=== PATIENT | female | born 1940 | race Caucasian/White ===

== ENCOUNTER → 2018-03-18 07:04 | Outpatient (CLI) | payer MEDICARE, BC, SELFPAY ==
[2018-03-18 10:31] LABS: AST(SGOT) 19 U/L (15-37); Alanine Aminotransfer ALT/SGPT 32 U/L (13-56); Anion Gap 7 (5-15); BUN 22 mg/dL (7-18); BUN/Creat Ratio 24.7 RATIO (10-20); Chloride 106 mmol/L (98-107); Cholesterol 160 mg/dL (200); Creatinine, Serum 0.89 mg/dL (0.55-1.02); EST Glomerular Filtration Rate 65 mL/min (>60); Est Glom Filt Rate - Afr Amer 79 mL/min (>60); Glucose 102 mg/dL (74-106); High Density Lipoprotein 62 mg/dL; Potassium 4.4 mmol/L (3.5-5.1); Sodium Level 142 mmol/L (136-145); Triglycerides 80 mg/dL; Very Low Density Lipoprotein 16 mg/dL (5-40)
== END ==
PROVIDERS: Family Provider Family Medicine; PCP Family Medicine; Referring Provider Family Medicine; Visit Provider Family Medicine
DX: E78.00 Pure hypercholesterolemia, unspecified (principal); I10 Essential (primary) hypertension
CPT/HCPCS: 36415; 80048; 80061; 84450; 84460

== ENCOUNTER → 2019-03-17 07:06 | Outpatient (CLI) | payer MEDICARE, BC, SELFPAY ==
[2019-03-17 10:21] LABS: AST(SGOT) 20 U/L (15-37); Alanine Aminotransfer ALT/SGPT 34 U/L (13-56); Anion Gap 7 (5-15); BUN 22 mg/dL (7-18); BUN/Creat Ratio 21.8 RATIO (10-20); Calcium,Total 9.4 mg/dL (8.5-10.1); Chloride 105 mmol/L (98-107); Cholesterol 168 mg/dL (200); Creatinine, Serum 1.01 mg/dL (0.55-1.02); EST Glomerular Filtration Rate 56 mL/min (>60); Est Glom Filt Rate - Afr Amer 68 mL/min (>60); Glucose 90 mg/dL (74-106); High Density Lipoprotein 64 mg/dL; Sodium Level 140 mmol/L (136-145); Triglycerides 120 mg/dL; Very Low Density Lipoprotein 24 mg/dL (5-40)
== END ==
PROVIDERS: Family Provider Family Medicine; PCP Family Medicine; Referring Provider Family Medicine; Visit Provider Family Medicine
DX: I10 Essential (primary) hypertension (principal); E78.00 Pure hypercholesterolemia, unspecified
CPT/HCPCS: 36415; 80048; 80061; 84450; 84460

== ENCOUNTER → 2020-03-15 07:05 | Outpatient (CLI) | payer MEDICARE, BC, SELFPAY ==
[2020-03-15 10:33] LABS: AST(SGOT) 26 U/L (15-37); Alanine Aminotransfer ALT/SGPT 36 U/L (13-56); Anion Gap 4 (5-15); BUN 24 mg/dL (7-18); BUN/Creat Ratio 25.7 RATIO (10-20); Chloride 106 mmol/L (98-107); Cholesterol 184 mg/dL (200); Creatinine, Serum 0.94 mg/dL (0.55-1.02); EST Glomerular Filtration Rate 61 mL/min (>60); Est Glom Filt Rate - Afr Amer 74 mL/min (>60); Glucose 92 mg/dL (74-106); High Density Lipoprotein 77 mg/dL; Potassium 3.9 mmol/L (3.5-5.1); Sodium Level 140 mmol/L (136-145); Thyroid Stim Hormone (TSH) 3.86 uIU/mL (0.358-3.74); Triglycerides 108 mg/dL; Very Low Density Lipoprotein 22 mg/dL (5-40)
[2020-03-17 08:13] LABS: Vitamin D,25 Hydroxy 46.8 ng/mL
== END ==
PROVIDERS: PCP Family Medicine; Referring Provider Family Medicine; Visit Provider Family Medicine
DX: E78.00 Pure hypercholesterolemia, unspecified (principal); I10 Essential (primary) hypertension; M81.0 Age-related osteoporosis without current pathological fracture
CPT/HCPCS: 36415; 80048; 80061; 82306; 84443; 84450; 84460

== ENCOUNTER → 2021-03-23 09:23 | Outpatient (CLI) | payer MEDICARE, BC, SELFPAY ==
[2021-03-23 10:47] LABS: AST(SGOT) 35 U/L (15-37); Alanine Aminotransfer ALT/SGPT 50 U/L (13-56); Anion Gap 6 (5-15); BUN 26 mg/dL (7-18); Calcium,Total 9.1 mg/dL (8.5-10.1); Chloride 108 mmol/L (98-107); Cholesterol 195 mg/dL (200); EST Glomerular Filtration Rate 57 mL/min (>60); Est Glom Filt Rate - Afr Amer 68 mL/min (>60); Glucose 97 mg/dL (74-106); High Density Lipoprotein 79 mg/dL; Potassium 4.3 mmol/L (3.5-5.1); Sodium Level 141 mmol/L (136-145); Triglycerides 81 mg/dL; Very Low Density Lipoprotein 16 mg/dL (5-40)
== END ==
PROVIDERS: PCP Family Medicine; Referring Provider Family Medicine; Visit Provider Family Medicine
DX: I10 Essential (primary) hypertension (principal); E78.00 Pure hypercholesterolemia, unspecified
CPT/HCPCS: 36415; 80048; 80061; 84450; 84460

== ENCOUNTER 2021-12-24 19:17 | Emergency (ER) | payer MEDICARE, BC, SELFPAY ==
[2021-12-24 19:18] VITALS: BP 213/126; PULSE 83; RESP 16; TEMP 36.4; O2SAT 99; BMI 24.7
[2021-12-24 19:30] VITALS: BP 167/68
--- NOTE | 2021-12-24 19:52 | ED.VIS.FALL ---
HPI HPI - Fall History of Present Illness Chief Complaint: Laceration Narrative Narrative: Pain and for that home. She was holding a bowl and stood up after feeding her dog. She just leaned back too far. She did not get lightheaded or dizzy. She landed on the edge of a oak table. She hit her left back. She states that area is sore. She then slid down and scraped her head on the corner. She has a small laceration on the side of her scalp. She states her head does not hurt. She did not hit it hard. She has no LOC nausea or vomiting. She never lost consciousness. She denies anticoagulation. She is acting normally. No numbness tingling weakness. She has urinated since the event and there was no blood. She has no abdominal pain nausea vomiting. She has been up walking around. No numbness tingling weakness. She states she feels sore on the left upper lumbar area where she hit the table. Is just a little sore to move. PFSH PFS Medical History High cholesterol HTN (hypertension) Tonsillectomy planned Allergy/AdvReac Type Severity Reaction Status Date / Time Sulfa (Sulfonamide Allergy Hives Verified 12/24/21 19:21 Antibiotics) Social History Smoking Status: Former smoker ROS ROS ED Constitutional Constitutional ED: Denies fever(s) Eyes Eyes: Denies change in vision ENT ENT ED: Reports other Details: Laceration left side of head ; Denies ear pain Cardiovascular Cardiovascular: Denies chest pain, palpitations or racing heartbeat Respiratory/Chest Respiratory/Chest: Reports other Details: No pain with a deep breath. No shortness of breath. She does not feel as though her injuries on the rib cage. ; Denies cough or dyspnea Gastrointestinal Gastrointestinal: Denies abdominal pain, nausea or vomiting Genitourinary Genitourinary ED: Denies hematuria Musculoskeletal Musculoskeletal: Reports back pain; Denies arthralgias, myalgias or neck pain Integumentary Reports other Details: Laceration left side of scalp Neurologic Neurologic: Denies headache(s) or paresthesias Hematologic/Lymphatic Hematologic/Lymphatic: Denies easy bleeding or easy bruising Allergic/Immunologic Allergic/Immunologic ED: Denies urticaria EXAM Physical Exam Const Vital Signs: 12/24/21 19:18 12/24/21 19:30 12/24/21 19:30 Temperature 97.6 F L Temperature Source Temporal Pulse Rate 83 Respiratory Rate 16 Respiratory Effort Normal Non-Labored Blood Pressure 213/126 H 167/68 H Blood Pressure Mean 155 101 Pulse Ox 99 Oxygen Delivery Method Room Air Positive well nourished and well developed General Appearance ED: well developed and NAD HEENT HEENT Narrative: We cleaned the side of the head. She has a 1.5 cm laceration on the left scalp. This has a small Z shaped component. No active bleeding at this time. No step-off. She states it really does not hurt. She states it more braga from the laceration. Eyes EOMs intact bilaterally Neck full ROM General: Negative for tenderness Chest Wall inspection of chest normal Resp normal respiratory effort and clear to auscultation bilaterally Resp Narrative: No pain with a deep breath. No pain with AP or lateral compression. Cardio regular rate and regular rhythm GI non-tender and non-distended Back/Spine Back/Spine Narrative: Patient has some mild nonfocal soreness around the left CVA area and left paraspinal area. There is no bruising or contusion. She is able to move and twist. She states it sore but not that bad. Neuro oriented x3 Psych mental status grossly normal Skin Skin Narrative: Laceration as above MDM MDM MDM Narrative Medical decision making narrative: We discussed options with the patient. It sounds like she more scraped her head on the table rather than had an impact. She states most of the impact was on her back. I do not think we need to do CT scan of her head at this time. Patient does not have hematuria. She has no abdominal pain. She has no external bruising on her back. She is mobile and moving. Plan will be to put talita in the scalp. Procedure: Staple laceration: Area around the wound was scrubbed and cleaned. We anesthetized it topically with LET. She had some mild but not complete anesthesia. We placed 2 talita. She tolerated this well. No bleeding. We talked about further imaging of the back of her head. She states she is just sore. I explained that if she gets up and walks around and she is uncomfortable or concern we can always do further imaging. She states she will also return if she is having worsening pain numbness blood in the urine or any other abnormalities. Discharge Plan Triage Chief Complaint: Laceration Other Complaint: Fall ED Provider: Marcio Mckinney Dx/Rx/DC Orders Clinical Impression: Fall from slipping, Lumbar contusion, Laceration of scalp, Stapled skin wound Instructions: ED Back Contusion, ED Laceration Scalp Sutr Stap Ch Primary Care Provider: Angelina Obregon Referrals: Angelina Obregon MD [Primary Care Provider] - 5 Days for suture removal Disposition Disposition: Home, Self Care
[2021-12-24] MEDS: Lidocaine/Epi/Tetracaine 50 ML 1 APPLIC TOPICAL (19:56)
== END 2021-12-24 21:04 | disposition home or self-care (01) ==
PROVIDERS: Emergency Provider Emergency Medicine; PCP Family Medicine; Visit Provider Emergency Medicine
DX: S01.01XA Laceration without foreign body of scalp, initial encounter (principal); Z87.891 Personal history of nicotine dependence; S30.0XXA Contusion of lower back and pelvis, initial encounter; W01.190A Fall on same level from slipping, tripping and stumbling with subsequent striking against furniture, initial encounter
CPT/HCPCS: 12001; 99282

== ENCOUNTER → 2021-12-28 | Outpatient (CLI) | payer MEDICARE, BC, SELFPAY ==
[2021-12-28 10:26] LABS: AST(SGOT) 24 U/L (15-37); Alanine Aminotransfer ALT/SGPT 34 U/L (13-56); Anion Gap 5 (5-15); BUN 33 mg/dL (7-18); Calcium,Total 8.7 mg/dL (8.5-10.1); Chloride 107 mmol/L (98-107); Cholesterol 174 mg/dL (200); EST Glomerular Filtration Rate 51 mL/min (>60); Est Glom Filt Rate - Afr Amer 61 mL/min (>60); Glucose 105 mg/dL (74-106); High Density Lipoprotein 66 mg/dL; Microalbumin,Random Urine 23.2 mg/L (NO RANGE EST.); Microalbumin:Creatinine Ratio 31.3 mg/g CRE (<30 mg/g CRE); Potassium 4.4 mmol/L (3.5-5.1); Sodium Level 140 mmol/L (136-145); Thyroid Stim Hormone (TSH) 2.43 uIU/mL (0.358-3.74); Triglycerides 100 mg/dL; Very Low Density Lipoprotein 20 mg/dL (5-40)
== END | disposition home or self-care (01) ==
PROVIDERS: PCP Family Medicine; Referring Provider Family Medicine; Visit Provider Family Medicine
DX: E78.00 Pure hypercholesterolemia, unspecified (principal); I10 Essential (primary) hypertension
CPT/HCPCS: 36415; 80048; 80061; 82043; 82570; 84443; 84450; 84460

== ENCOUNTER 2022-08-02 07:48 | Emergency (ER) | payer MEDICARE, BC, SELFPAY ==
[2022-08-02 07:49] VITALS: BP 231/118; PULSE 106; RESP 18; TEMP 36.6; O2SAT 96
--- NOTE | 2022-08-02 08:05 | EDS_ITS ---
HPI History of Present Illness Chief Complaint: Cough Narrative Narrative: 82-year-old female presenting with hemoptysis. She states she has had a cough and congestion for about a month. She states this initially started as a cold with typical fevers, chills, body aches. She states those symptoms did improve however she is been coughing over this last month. This morning she notes she had 3 episodes of hemoptysis. Not particularly painful. First episode there was more of a bright red picture to her. She states of the last time she coughed there was not much there. She denies epigastric pain or nausea vomiting. Patient's not having any significant chest pain and she does not really feel short of breath. She states her only medical problem is hypertension currently that is active. She takes a medication for this but cannot recall it. Patient states he has a history of melanoma in the past. No recent long distance travel, immobilization, surgery, urologist hormones, and no history of DVT/PE. She is not anticoagulated. She states she has not been a smoker in 30 years. She does get bronchitis from time to time. She states he is not coughing like she has bronchitis. [facility] Medical History High cholesterol HTN (hypertension) Tonsillectomy planned Home Medications aspirin 81 mg tablet,delayed release 81 mg PO DAILY HEALTH MAINTENANCE 08/02/22 [History Last Taken 08/01/22] atorvastatin 40 mg tablet 40 mg PO QHS CHOLESTEROL 08/02/22 [History Last Taken 08/01/22] citalopram 20 mg tablet 20 mg PO DAILY DEPRESSION 08/02/22 [History Last Taken 08/01/22] levofloxacin 500 mg tablet 500 mg PO DAILY #6 tabs 08/02/22 [Rx Last Taken Unknown] lisinopril 20 mg tablet 20 mg PO DAILY BP 08/02/22 [History Last Taken 08/02/22] Allergy/AdvReac Type Severity Reaction Status Date / Time Sulfa (Sulfonamide Allergy Hives Verified 08/02/22 07:52 Antibiotics) Family History no significant family his Social History Smoking Status: Former smoker ROS ROS ED Constitutional Constitutional ED: Denies chills, fever(s) or sweats Eyes Eyes: Denies blurry vision or change in vision ENT ENT ED: Denies ear pain or sore throat Cardiovascular Cardiovascular: Denies chest pain, palpitations or racing heartbeat Respiratory/Chest Respiratory/Chest: Reports cough and other Details: Hemoptysis ; Denies dyspnea Gastrointestinal Gastrointestinal: Denies abdominal pain, constipation, diarrhea, nausea or vomiting Genitourinary Genitourinary ED: Denies dysuria, hematuria or urinary frequency Musculoskeletal Musculoskeletal: Denies arthralgias, myalgias or neck pain Integumentary Denies abscess, Abrasions or rash Neurologic Neurologic: Denies headache(s), paresthesias or weakness Psychiatric Psychiatric: Denies anxiety, depression, suicidal ideation or suicidal thoughts Endocrine Endocrinology: Denies polydipsia or polyuria EXAM Physical Exam Const Vital Signs: 08/02/22 07:49 08/02/22 08:31 08/02/22 08:41 Temperature 97.9 F Temperature Source Temporal Pulse Rate 106 H 69 Respiratory Rate 18 16 Blood Pressure 231/118 H 194/78 H Blood Pressure Mean 155 116 Pulse Ox 96 95 Oxygen Delivery Method Room Air Room Air Room Air Oxygen Flow Rate (L/min) 08/02/22 10:39 08/02/22 11:49 08/02/22 12:23 Temperature Temperature Source Pulse Rate 111 H 93 98 Respiratory Rate 20 H 16 18 Blood Pressure 196/78 H 177/87 H 165/89 H Blood Pressure Mean 117 117 114 Pulse Ox 93 Oxygen Delivery Method Nasal Cannula Nasal Cannula Nasal Cannula Oxygen Flow Rate (L/min) 2 4 4 Positive well nourished General Appearance ED: NAD; Negative for pallor HEENT Reports moist mucous membranes Eyes PERRL and EOMs intact bilaterally General Eye ED: Negative for pale conjunctiva or scleral icterus Chest Wall inspection of chest normal and palpation of chest normal Resp normal respiratory effort and clear to auscultation bilaterally Auscultation: Negative for rales, rhonchi or wheezes Cardio regular rate Rate: tachycardic GI normal to inspection, nondistended, normoactive bowel sounds Neuro oriented x3 and CN's II-XII intact bilaterally Motor Exam: strength 5/5 throughout Psych mental status grossly normal Skin no rashes or lesions noted and no wounds General Skin Exam: Negative for jaundice or pallor MDM MDM MDM Narrative Medical decision making narrative: Patient presenting with hemoptysis. She has a history of a recent cold about a month ago. He had a coughing over the last few weeks. Today she noted hemoptysis. She has a history of bronchitis but states she does not feel like she has bronchitis. She does not have any risk factors for PE with exception of a history of cancer and a recent cold which could have been COVID-19 which possibly puts her at risk for blood clot. She states she does not have any significant chest pain or shortness of breath. She does have a persistent cough. She is tachycardic so I cannot PERC her out. She is also hypertensive and states she took her medication this morning but cannot recall what it is. Differential diagnosis here is pneumonia, bronchitis, PE, malignancy, vasculitis. Patient is notably hypertensive here today as well. I will reassess her blood pressure. CBC to assess white blood cell count, hemoglobin, differential. BMP to assess renal function, electrolytes, glucose, anion gap, high-sensitivity troponin, EKG, chest x-ray due to patient's hypertension and tachycardia to assess for arrhythmia cardiac etiology. D-dimer is also ordered. CBC shows no leukocytosis. Hemoglobin 11.6. Platelets are normal. BMP shows normal renal function although she has some slight prerenal azotemia. She is given a liter of IV fluids. Electrolytes within normal limits. High- sensitivity troponin is 12. Her chest x-ray shows what looks like right upper and lower lobe pneumonia on my interpretation. Radiologist services agrees. D- dimer came back at 1.2. She was sent over for CTA. While she was in the CT scanner she dropped her pulse ox to 86%. She was able to come back up with oxygen treatment. She did have an episode of hemoptysis while she was in there. This was sent for sputum culture. She is not doing well sitting in bed she is not requiring any oxygen I did have her ambulated and she dropped to 86%. 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 She does not want to stay. Discussed with Dr. Grimes who recommended trying to get her home with home oxygen. I was able to set this up to [employer]. She appears to only need [address] Grimes also recommended putting her on Levaquin for the next week. She is amenable to this. Patient was discharged home on 4 L of oxygen with a prescription for Levaquin. Follow-up was given to her through Dr. Grimes. I also initiated a blister fast past oncology referral. Return precautions were discussed at length. I d iscussed this with Dr. Obregon is well in order to get her close follow-up and follow-up for hypertension. Impression: 1. Hypoxia 2. Hemoptysis 3. Lung mass 4. Pneumonia 5. Hypertension?established Lab Data Attestation: I reviewed the patient's lab results. Labs: Laboratory Results - last 24 hr 08/02/22 08/02/22 08/02/22 08:19 08:19 08:19 WBC 9.5 RBC 4.25 Hgb 11.6 L Hct 35.5 L MCV 83.5 MCH 27.3 MCHC 32.7 RDW Std Deviation 43.3 RDW Coeff of [place] 14.2 Plt Count 215 MPV 9.8 Immature Gran % (Auto) 0.500 Neut % (Auto) 78.8 H Lymph % (Auto) 13.6 L [place] % (Auto) 4.8 Eos % (Auto) 1.8 Baso % (Auto) 0.5 Absolute Neuts (auto) 7.5 Absolute Lymphs (auto) 1.29 Nucleated RBC % 0 D-Dimer Quant (PE/DVT) 1.20 H* Sodium 139 Potassium 4.2 Chloride 107 Carbon Dioxide 28.0 Anion Gap 4 L BUN 27 H Creatinine 0.98 Estim Creat Clear Calc 35.00 Est GFR (MDRD) Af Amer 69 Est GFR (MDRD) Non-Af 57 L BUN/Creatinine Ratio 27.4 H Glucose 109 H Calcium 9.5 Troponin I High Sens 12 Radiography Diagnostic Testing: Clinical Impression(s) from Imaging Studies Chest X-Ray 08/02/22 08:50 IMPRESSION: Findings suggestive of early right upper and right lower lobe pulmonary infiltrates. Radiographic follow-up recommended. Right shoulder calcific tendinitis. Electronically Signed: Mahamed Ansari MD at 9:14 EST , Chest CTA 08/02/22 08:54 IMPRESSION: No evidence of a pulmonary embolism. Dense consolidation in the right lower lobe with patchy infiltrate in the right upper lobe superimposed on the emphysematous changes. One centimeters nodule in the right middle lobe. 3 cm x 2.9 cm partially necrotic mass in the superior segment of the right lower lobe. Neoplastic processes should be ruled out. Electronically Signed: Mahamed Ansari MD at 9:49 EST , Discharge Plan Triage Chief Complaint: Cough ED Provider: Wicho Tillman Dx/Rx/DC Orders Instructions: Using Oxygen Safely, Using Oxygen at Home, ED Hemoptysis, ED Pneumonia (Adult) Prescriptions: New levofloxacin 500 mg tablet 500 mg PO DAILY Qty: 6 0RF No Action atorvastatin 40 mg tablet 40 mg PO QHS Label Comments: TAKE 1 TABLET BY MOUTH ONCE DAILY lisinopril 20 mg tablet 20 mg PO DAILY Label Comments: TAKE 1 TABLET BY MOUTH ONCE DAILY aspirin [Aspirin Low-Strength] 81 mg Tablet,Delayed Release (Dr/Ec) 81 mg PO DAILY citalopram 20 mg tablet 20 mg PO DAILY Label Comments: TAKE 1 TABLET BY MOUTH ONCE DAILY Other Ambulatory Orders: Fast Pass: Oncology Referral [facility] (Routine) Facility: [facility] - Location: [facility] Ordered By: Dr. Wicho Tillman Primary Care Provider: Angelina Obregon Referrals: Angelina Obregon MD [Primary Care Provider] - Ross Grimes DO [Med Staff - Active Staff] - As soon as possible Disposition Disposition: Home, Self Care Discharge Date/Time: 08/02/22 12:27
--- NOTE | 2022-08-02 08:05 | EKG12_ITS ---
Test Reason : COUGH Blood Pressure : / mmHG Vent. Rate : 075 BPM Atrial Rate : 075 BPM P-R Int : 162 ms QRS Dur : 072 ms QT Int : 378 ms P-R-T Axes : 068 -08 029 degrees QTc Int : 422 ms Normal sinus rhythm Normal ECG Confirmed by SUNDEEP TROTTER, JIMENA ([id number]), editor newspaper AMAYA MENCHACA ([id number]) on 08/04/2022 12:56:13 PM Referred By: Confirmed By:JIMENA URBANO MD
--- NOTE | 2022-08-02 08:07 | NURSING ---
NO OLD EKGS
[2022-08-02 08:27] LABS: Absolute Lymphocyte Count 1.29 X10^3/uL (0.83-4.51); Absolute Neutrophil Count 7.5 X10^3/uL (2.0-7.7); Basophil# 0.05 X10^3/uL; Basophil% 0.5 % (0-1); Eosinophil# 0.17 X10^3/uL; Eosinophils% 1.8 % (0-5); Hematocrit 35.5 % (37-47); Hemoglobin 11.6 g/dL (12.0-15.0); Lymphocyte # 1.29 X10^3/ul (0.83-4.51); Lymphocyte % 13.6 % (19-41); Mean Corp Hgb Conc 32.7 g/dL (32-36); Mean Corpuscular Hgb 27.3 pg (27.0-32.0); Mean Corpuscular Volume 83.5 fL (81-99); Mean Platelet Vol. 9.8 fl (6.2-12.0); Monocyte# 0.45 X10^3/uL; Monocyte% 4.8 % (0-10); NRBC Flagged by Analyzer 0 % (0-5); Neutrophil # 7.45 X10^3/uL (2.7-7.7); Neutrophil % 78.8 % (47-70); Platelet Count 215 K/mm3 (150-450); RBC Distribution Width CV 14.2 % (11.6-14.6); RBC Distribution Width SD 43.3 fl (35.1-43.9); Red Blood Count 4.25 M/mm3 (4.2-5.4); White Blood Count 9.5 K/mm3 (4.4-11.0)
[2022-08-02 08:31] VITALS: BP 194/78; PULSE 69; RESP 16; O2SAT 95; BMI 26.7
[2022-08-02 08:46] LABS: Anion Gap 4 (5-15); BUN 27 mg/dL (7-18); BUN/Creat Ratio 27.4 RATIO (10-20); Calcium,Total 9.5 mg/dL (8.5-10.1); Chloride 107 mmol/L (98-107); Creatinine, Serum 0.98 mg/dL (0.55-1.02); EST Glomerular Filtration Rate 57 mL/min (>60); Est Glom Filt Rate - Afr Amer 69 mL/min (>60); Glucose 109 mg/dL (74-106); Potassium 4.2 mmol/L (3.5-5.1); Sodium Level 139 mmol/L (136-145); Troponin-I HS 12 pg/mL (3.0-54.0)
--- NOTE | 2022-08-02 08:50 | RAD_ITS ---
STUDY: X-RAY CHEST REASON FOR EXAM: Female, 82 years old. Cough. Hemoptysis. TECHNIQUE: Single AP portable view of the chest. COMPARISON: None. FINDINGS: EKG electrodes are seen. Increased markings with areas of confluence seen in the right upper and right lower lobes. Early infiltrate should be ruled out. Radiographic follow-up is recommended. Calcified granulomas in the right upper lobe. There is no demonstrated pleural abnormality. Normal size heart. Normal mediastinum and ariadne. Normal visualized pulmonary arteries. There is atherosclerotic calcification of the aortic arch with tortuosity. There are diffuse degenerative changes of the visualized thoracic spine. There is degenerative osteoarthritis of the bilateral shoulders. Calcific tendinitis of the right shoulder. There is no demonstrated abnormality of the visualized soft tissue structures of the upper abdomen. RAD/Chest 1 View (Portable) IMPRESSION: Findings suggestive of early right upper and right lower lobe pulmonary infiltrates. Radiographic follow-up recommended. Right shoulder calcific tendinitis. Electronically Signed: Mahamed Ansari MD at 9:14 EST ,
--- NOTE | 2022-08-02 08:54 | CT_ITS ---
STUDY: CTA CHEST REASON FOR EXAM: Female, 82 years old. Hemoptysis. Chest congestion and cough. RADIATION DOSAGE (If Supplied By Facility): CTDIvol = ( 11.81 ) mGy, DLP = ( 374.99 ) mGycm TECHNIQUE: The examination was performed with the intravenous administration of IV 100mL Isovue-370. Post-processing of the angiographic images was performed, with multiplanar reformation and 3D reconstruction. Individualized dose optimization techniques were used for this CT. COMPARISON: Comparison is made with prior chest radiograph done earlier in the day. FINDINGS: Normal enhancement of the main pulmonary artery and right and left pulmonary arteries. Normal enhancement of the bilateral peripheral pulmonary arteries. There is no demonstrated pulmonary embolism. There is atherosclerotic calcification of the aortic arch with tortuosity. There is no demonstrated aortic dissection. Normal heart and pericardium. Normal mediastinum. Normal hilar regions. Normal visualized trachea and bronchi. Emphysematous changes with a bullous formation more prominent in the upper lobes. There is a 1 cm spiculated nodule in the right middle lobe as seen on axial image #97 and coronal image #73. There is a partially necrotic mass measuring 3 cm x 2.9 cm and the superior segment of the right lower lobe. A neoplastic process should be ruled out. There is evidence of consolidation in the right lower lobe superimposed on chronic scarring with bullous formation. There is also evidence of a patchy infiltrate in the posterior aspect of the right upper lobe. Normal pleura. Normal chest wall structures. There are degenerative changes of thoracic spine. Increased kyphosis. Multiple cysts are seen in both upper poles of the kidneys. Small hiatal hernia. CT/CTA Chest W/WO Contrast IMPRESSION: No evidence of a pulmonary embolism. Dense consolidation in the right lower lobe with patchy infiltrate in the right upper lobe superimposed on the emphysematous changes. One centimeters nodule in the right middle lobe. 3 cm x 2.9 cm partially necrotic mass in the superior segment of the right lower lobe. Neoplastic processes should be ruled out. Electronically Signed: Mahamed Ansari MD at 9:49 EST ,
[2022-08-02] MEDS: 0.9% Normal Saline 1,000 ML 999 ML IV (09:07)
[2022-08-02 10:34] VITALS: O2SAT 93
[2022-08-02 10:39] VITALS: BP 196/78; PULSE 111; RESP 20; O2SAT 93
--- NOTE | 2022-08-02 11:14 | ED.RN ---
pt ambulated with 4 liters of oxygen at 94-96 %
--- NOTE | 2022-08-02 11:42 | CM.ED ---
Social Work Note Referrel Source: manager payroll Sarah Referral Reason: O2 need manager payroll met with RANCHO and reviewed patient's symptoms and needs regarding oxygen at home. RANCHO met with MD Tillman who inquired about patient's ability to be sent home with oxygen. [facility]. RANCHO contacted Betsy with [facility] and inquired about process for home oxygen. RANCHO informed patient needs to be walked with RN to identify the liters needed and encouraged to contact staff to review completing the form as she was away from her office then once completed the quick script form signed by would need to be sent via [employer] as well as patient's facesheet. RANCHO consulted with RN JAMAICA Regan regarding quick script. SW met with patient's RN Saimra and informed patient needs 4 liters. RANCHO completed quick script form with MD Tillman. [facility]CHO [facility] via [facility] which included quick script, facesheet and insurance. Plan: Betsy to review referral and meet with patient to provide O2 as well as review use. Ashlyn Sim PIZZA CHEF, AZEEM
[2022-08-02 11:49] VITALS: BP 177/87; PULSE 93; RESP 16
[2022-08-02] MEDS: levoFLOXacin 750 MG Tablet PO (12:01)
[2022-08-02 12:23] VITALS: BP 165/89; PULSE 98; RESP 18
== END 2022-08-02 12:27 | disposition home or self-care (01) ==
PROVIDERS: Emergency Provider Student in an Organized Health Care Education/Training Program; PCP Family Medicine; Visit Provider Student in an Organized Health Care Education/Training Program
DX: J18.9 Pneumonia, unspecified organism (principal); R04.2 Hemoptysis; I10 Essential (primary) hypertension; R09.02 Hypoxemia; E78.00 Pure hypercholesterolemia, unspecified; Z87.891 Personal history of nicotine dependence; Z79.899 Other long term (current) drug therapy; Z79.82 Long term (current) use of aspirin
CPT/HCPCS: 71045; 71275; 80048; 84484; 85025; 85379; 93005; 99283; J7030; Q9967; A4216

== ENCOUNTER → 2022-08-17 | Outpatient (CLI) | payer MEDICARE, BC, SELFPAY ==
[2022-08-17 11:15] VITALS: PULSE 69; PULSE 73; PULSE 84; PULSE 89; PULSE 90; PULSE 96; PULSE 97; O2SAT 89; O2SAT 90; O2SAT 91; O2SAT 95; O2SAT 97
--- NOTE | 2022-08-18 09:12 | PCM.PSN.6M ---
PSN 6 Minute Walk Test 6 Minute Walk Test 6 Minute Walk Test: 6 Minute Walk Test PSN:6-Minute Walk Test Start: 08/17/22 11:22 Freq: Status: Active Protocol: [id number].[id number] Document 08/17/22 11:15 EW (Rec: 08/17/22 11:24 EW [id number]) 6 Minute Walk Test Pre-test Oxygen Delivery Method Room Air Pulse Ox (%) 97 Pulse Rate (60-100 beats/min) 69 Dyspnea Rajani Scale (0-10) 0 Exertion Rajani Scale (6-20) 6 1st minute Oxygen Delivery Method Room Air Pulse Ox (%) 90 Pulse Rate (60-100 beats/min) 96 2nd minute Oxygen Delivery Method Room Air Pulse Ox (%) 91 Pulse Rate (60-100 beats/min) 97 3rd minute Oxygen Delivery Method Room Air Pulse Ox (%) 91 Pulse Rate (60-100 beats/min) 97 4th minute Oxygen Delivery Method Room Air Pulse Ox (%) 91 Pulse Rate (60-100 beats/min) 89 5th minute Oxygen Delivery Method Room Air Pulse Ox (%) 91 Pulse Rate (60-100 beats/min) 90 6th minute Oxygen Delivery Method Room Air Pulse Ox (%) 89 Pulse Rate (60-100 beats/min) 84 Post-test Oxygen Delivery Method Room Air Pulse Ox (%) 95 Pulse Rate (60-100 beats/min) 73 Dyspnea Rajani Scale (0-10) 0 Exertion Rajani Scale (6-20) 8 Full Laps Walked 13 Partial Lap, Number of Tiles Walked 0 Total Distance Walked (ft) 767 Interpretation Interpretation: The patient ambulated 767 feet over the course of 6 minutes beginning on room air without assistive devices. Pretesting oxygen saturation was noted to be 97% on room air. With ambulation, the shyam oxygen saturation was 89%. This represents a significant exertional oxygen desaturation, consistent with a pulmonary limitation to exercise tolerance. Recommendations Recommendations: There is no indication for the use of supplemental oxygen at this time. However, close interval follow-up was recommended, given the degree of oxygen desaturation noted during this study.
== END | disposition home or self-care (01) ==
LOC: PSN 11:02
PROVIDERS: PCP Family Medicine; Referring Provider Internal Medicine Critical Care Medicine; Visit Provider Internal Medicine Critical Care Medicine
DX: R91.8 Other nonspecific abnormal finding of lung field (principal)
CPT/HCPCS: 94618

== ENCOUNTER 2022-08-18 08:50 | Outpatient (CLI) | payer MEDICARE, BC, SELFPAY ==
[2022-08-18] VITALS (13 sets, daily range): BP systolic 127–200; BP diastolic 40–106; PULSE 55–68; RESP 14–23; TEMP 36.3; O2SAT 93–100; BMI 24.8
--- NOTE | 2022-08-18 09:02 | CT_ITS ---
PROCEDURE: CT GUIDED CORE NEEDLE BIOPSY OF A LUNG LESION INDICATION: Female, 82 years old. Right lower lobe pulmonary nodule. PHYSICIAN: Dr. Elan Canas CONSENT: Written informed consent was obtained having explained the risks, benefits and alternatives in detail with the patient who accepted the risks and agreed to proceed. Laboratory review and clinical assessment was performed. CONSCIOUS SEDATION PROTOCOL: The Drugs used were: 2 mg Versed, IV., and 50 mcg Fentanyl, IV. The sedation time was: 24 minutes. Conscious sedation was started at 9:49 AM and terminate at 10:13 AM The conscious sedation protocol was independently monitored. RADIATION DOSAGE (If Supplied By Facility): CTDIvol = ( 20.5 ) mGy, DLP = ( 748.9 ) mGycm Individualized dose optimization techniques were used for this CT. TECHNIQUE: The patient was placed in the prone position. A noncontrast CT was performed to localize the lesion in the posterior aspect of the right lower lobe . The skin surface was prepped and draped in a sterile fashion. 1% lidocaine was used for local anesthesia. Using CT guidance, a 20-gauge coaxial biopsy device was advanced to the periphery of the lesion. A total of 5 core specimens were obtained. The specimens were placed in a formalin solution. A post procedure CT demonstrated no adverse sequelae or pneumothorax. The patient tolerated the procedure well without adverse event. A negative biopsy does not exclude malignancy. Further imaging or clinical followup based on patient condition and degree of clinical suspicion for malignancy. Suggest rebiopsy, if biopsy results do not match with clinical scenario. CT/Biopsy/Inj or Needle Placement IMPRESSION: 1. CT directed core needle biopsy of the posterior right lower lobe pulmonary nodule using CT image guidance with image documentation as described. Pathology results are pending. 2. Conscious Sedation protocol utilized with independent monitoring. Electronically Signed: Mahamed Ansari MD at 11:56 EST ,
[2022-08-18 09:03] LABS: Platelet Count 296 K/mm3 (150-450)
[2022-08-18 09:12] LABS: Partial Thromboplast Time 28.1 Seconds (24.1-36.2); Prothrombin Time (Protime)PT. 13.1 SECONDS (11.7-14.9)
[2022-08-18] MEDS: 0.9% Saline Lock 10 ML Syringe IV ×2 (09:39→10:05)
[2022-08-18] MEDS: Midazolam 2 MG/2 ML Syringe IV (09:46)
[2022-08-18] MEDS: fentaNYL 100 MCG/2 ML Ampul IV (09:49)
--- NOTE | 2022-08-18 10:00 | ASPIGT_PTH ---
PATIENT: LALI MONET LOC: CT U#:[id number] AGE/SX: 82/F ROOM: RE08/18/[address]: Dr. Ross Grimes DO : 1940 BED: DIS: 08/18/2022 SPEC #: [id number] RECD: 08/18/22 10:30 STATUS: ENMANUEL REAnkit #: [id number] ALEC: 08/18/22 10:[address]: Ross Grimes DEPT: SURGICAL PATHOLOGY RECD BY: Jacque Garcia ENTERED: 08/18/22 11:23 SP TYPE: ASP RAD OTHR DR: Dr. Angelina Obregon MD Tissues: Lung, NOS Procedures: FNA Specimen Adequacy Special Stain Group II Surgery Specimen Level IV Imprint (control) HEADER OPERATION: CT-guided right lung biopsy PRE-OP DIAGNOSIS: Right lung mass TISSUE SUBMITTED: Right posterior lung mass 20-gauge core x5 MICROSCOPIC DIAGNOSIS Right posterior lung mass, CT-guided core biopsy: Lung parenchymal tissue with interstitial fibrosis and pneumocyte-2 hyperplasia. Negative for malignancy. See comment. MICHAEL:franklin 08/21/2022 COMMENT The specimen is evaluated at the time of biopsy by Dr. Segovia. Immediate Evaluation = Negative for malignant cells. Numerous macrophages are noted. Correlation with clinical, radiologic findings and appropriate follow up are necessary. MICROSCOPIC DESCRIPTION Slides are reviewed. GROSS DESCRIPTION Received in fixative is one container labeled with the patient's name and designated right lung. The specimen consists of multiple irregular fragments of barrientos soft tissue that in aggregate measure 1.5 x <0.1 x <0.1 cm. The specimen is totally submitted in one cassette. Two touch imprints are prepared at the time of core biopsy. / MICHAEL:franklin 08/18/2022 TC:5 CPT: 98887, 93851
[2022-08-18] MEDS: Lidocaine 2% (20 ml mdv) 20 ML Vial INFILT (10:07)
--- NOTE | 2022-08-18 10:15 | RAD_ITS ---
STUDY: X-RAY CHEST REASON FOR EXAM: Female, 82 years old. Pneumothorax -- Immediately post lung biopsy TECHNIQUE: AP inspiration and expiration views. COMPARISON: Comparison is made with prior study dated August 02, 2022. FINDINGS: 5% right apical pneumothorax on the immediate post right lung biopsy radiographs. The patient is asymptomatic. Calcific tendinitis of the right shoulder. RAD/Chest Insp/Exp 2 View IMPRESSION: 5% right apical pneumothorax on the immediate post right lung biopsy radiographs. The patient is asymptomatic. Electronically Signed: Mahamed Ansari MD at 10:30 EST ,
--- NOTE | 2022-08-18 12:10 | RAD_ITS ---
STUDY: X-RAY CHEST REASON FOR EXAM: Female, 82 years old. Pneumothorax -- 2 hours post lung biopsy TECHNIQUE: AP inspiration and expiration views. COMPARISON: Comparison is made with prior examination done earlier today. FINDINGS: EKG electrodes are seen. Stables small right apical pneumothorax. The patient is asymptomatic. Normal size heart. Normal mediastinum and ariadne. Normal visualized pulmonary arteries. There is atherosclerotic calcification of the aortic arch with tortuosity. There is a levoscoliosis of the thoracic spine. There is degenerative osteoarthritis of the bilateral shoulders. There is no demonstrated abnormality of the visualized soft tissue structures of the upper abdomen. RAD/Chest Insp/Exp 2 View IMPRESSION: Stable small right apical pneumothorax. The patient was instructed to come to the emergency room if she develops acute shortness of breath. Electronically Signed: Mahamed Ansari MD at 12:20 EST ,
== END 2022-08-18 23:59 | disposition home or self-care (01) ==
PROVIDERS: PCP Family Medicine; Visit Provider Internal Medicine Critical Care Medicine
DX: Z01.812 Encounter for preprocedural laboratory examination (principal); R91.8 Other nonspecific abnormal finding of lung field; J93.9 Pneumothorax, unspecified
CPT/HCPCS: 32408; 36415; 71046; 77012; 85049; 85610; 85730; 88172; 88305; 88313; 99156; J7050; A4216; C2613

== ENCOUNTER → 2022-08-24 | Outpatient (CLI) | payer MEDICARE, BC, SELFPAY ==
[2022-08-24 08:48] LABS: Rheumatoid Factor < 10.0 IU/mL (<15)
[2022-08-25 15:09] LABS: Cytoplasmic Ab (C-ANCA) <1:20 titer (Neg:<1:20)
[2022-08-25 17:02] LABS: CCP IgG Antibodies 4 units (0-19); Perinuclear Ab (P-ANCA) <1:20 titer (Neg:<1:20)
[2022-08-25 17:04] LABS: ANTINUCLEAR ANTIBODIES DIRECT Negative (Negative)
== END | disposition home or self-care (01) ==
LOC: PAVLAB 07:49
PROVIDERS: PCP Family Medicine; Referring Provider Internal Medicine Critical Care Medicine; Visit Provider Internal Medicine Critical Care Medicine
DX: J84.10 Pulmonary fibrosis, unspecified (principal); R91.8 Other nonspecific abnormal finding of lung field
CPT/HCPCS: 36415; 86038; 86200; 86225; 86235; 86256; 86431

== ENCOUNTER → 2022-10-09 | Outpatient (CLI) | payer MEDICARE, BC, SELFPAY ==
--- NOTE | 2022-10-10 10:09 | PFT_ITS ---
INTRODUCTION: The patient is an 82-year-old female that presents for pulmonary function studies secondary to a diagnosis of pulmonary fibrosis. Respiratory therapy reported good patient effort. Bronchodilators were used during testing. INTERPRETATION: Forced expiration spirometry demonstrates the presence of a mild large airways obstructive ventilatory defect. There was a significant response to aerosolized bronchodilators. Spirograms are of good quality but do not plateau indicating slow emptying of the lungs. Body plethysmography was performed and revealed lung volumes to be within normal limits. Diffusing capacity by single breath CO was reduced to 58% of predicted. IMPRESSION: Partially reversible mild large airways obstructive ventilatory defect with sy mmetric reduction in diffusing capacity.
== END | disposition home or self-care (01) ==
LOC: PSN 12:41
PROVIDERS: PCP Family Medicine; Referring Provider Internal Medicine Critical Care Medicine; Visit Provider Internal Medicine Critical Care Medicine
DX: J84.10 Pulmonary fibrosis, unspecified (principal); R91.8 Other nonspecific abnormal finding of lung field
CPT/HCPCS: 94060; 94726; 94729

== ENCOUNTER → 2022-11-07 | Outpatient (CLI) | payer MEDICARE, BC, SELFPAY ==
[2022-11-07 18:20] LABS: AST(SGOT) 31 U/L (15-37); Alanine Aminotransfer ALT/SGPT 41 U/L (13-56); Cholesterol 164 mg/dL (200); High Density Lipoprotein 59 mg/dL; Triglycerides 84 mg/dL; Very Low Density Lipoprotein 17 mg/dL (5-40)
== END | disposition home or self-care (01) ==
LOC: MFPLAB 13:59
PROVIDERS: PCP Family Medicine; Visit Provider Family Medicine
DX: E78.00 Pure hypercholesterolemia, unspecified (principal)
CPT/HCPCS: 36415; 80061; 84450; 84460

== ENCOUNTER → 2022-11-13 | Outpatient (CLI) | payer MEDICARE, BC, SELFPAY ==
--- NOTE | 2022-11-13 06:48 | CT_ITS ---
STUDY: CT CHEST WITHOUT CONTRAST REASON FOR EXAM: Female, 82 years old. Lung Mass, Pulmonary Fibrosis RADIATION DOSAGE (If Supplied By Facility): CTDIvol = ( 9.73 ) mGy, DLP = ( 316.12 ) mGycm TECHNIQUE: Transaxial imaging was performed without the administration of intravenous contrast material. Multiplanar coronal and sagittal images were reformatted. Individualized dose optimization techniques were used for this CT. COMPARISON: Comparison is made with prior CT scan of the chest dated August 02, 2022. FINDINGS: CHEST Hyperinflation. Emphysematous changes more pronounced in the upper lobes. Subpleural blebs are seen in the right lower lobe. The previously seen heterogeneous consolidation in the right lower lobe has resolved. The previously seen nodular density in the right upper lobe as increased slightly in size. It presently measures 1.1 cm. There are calcifications of the coronary arteries. There are multiple small lymph nodes within the mediastinum, which are normal in size and morphology most compatible with reactive lymph hyperplasia. Normal hilar regions. Normal unenhanced pulmonary arteries. There is atherosclerotic calcification of the aortic arch with tortuosity and elongation of the aortic arch and descending thoracic aorta. There are multi-level degenerative changes of the thoracic spine. Stable cyst in the upper pole of both kidneys. CT/Chest without Contrast IMPRESSION: Interval clearing of the complex consolidation in the right lower lobe. Slight increase in size of the previously seen nodule in the right upper lobe. Stable 2 mm noncalcified nodule in the peripheral lateral aspect of the right upper lobe as seen on axial image number Electronically Signed: Mahamed Ansari MD at 11:30 EDT ,
== END | disposition home or self-care (01) ==
LOC: CT 06:48
PROVIDERS: PCP Family Medicine; Referring Provider Internal Medicine Critical Care Medicine; Visit Provider Internal Medicine Critical Care Medicine
DX: R91.8 Other nonspecific abnormal finding of lung field (principal); J84.10 Pulmonary fibrosis, unspecified
CPT/HCPCS: 71250

== ENCOUNTER → 2023-11-30 | Outpatient (CLI) | payer MEDICARE, BC, SELFPAY ==
[2023-11-30 16:14] LABS: Anion Gap 10 (5-15); BUN 34 mg/dL (7-18); BUN/Creat Ratio 29.3 RATIO (10-20); Calcium,Total 9.6 mg/dL (8.5-10.1); Chloride 106 mmol/L (98-107); Creatinine, Serum 1.16 mg/dL (0.55-1.02); EST Glomerular Filtration Rate 47 mL/min (>60); Est Glom Filt Rate - Afr Amer 57 mL/min (>60); Glucose 105 mg/dL (74-106); Potassium 4.7 mmol/L (3.5-5.1); Sodium Level 139 mmol/L (136-145)
== END | disposition home or self-care (01) ==
LOC: MFPLAB 11:13
PROVIDERS: PCP Family Medicine; Visit Provider Family Medicine
DX: I10 Essential (primary) hypertension (principal)
CPT/HCPCS: 36415; 80048

== ENCOUNTER → 2023-12-05 | Outpatient (CLI) | payer MEDICARE, BC, SELFPAY ==
--- NOTE | 2023-12-05 08:31 | CT_ITS ---
HISTORY: pulmonary fibrosis. TECHNIQUE: Helically acquired images were obtained of the chest without contrast. A radiation dose optimization technique was used for this scan. 901 images. COMPARISON: 11/13/2022, 08/02/2022. FINDINGS: LARGE AIRWAYS: Grossly patent with mild adherent material in the right trachea. LUNGS: Moderate emphysema without honeycombing or traction bronchiectasis. Calcified granuloma again seen in the right upper lobe posteriorly with a stable noncalcified 2 mm nodule on image 36/119. Spiculated 9 x 12 x 13 mm right middle lobe nodule, previously 9 x 12 x 12 mm. Stable 3 mm pleural-based right middle lobe nodule laterally. Right lower lobe pneumatocele. PLEURA: No pneumothorax or significant pleural effusion. HEART/PERICARDIUM: Heart within normal limits in size with coronary artery calcification. No pericardial effusion. VESSELS: Thoracic aorta nondilated. Advanced atherosclerosis. Mildly pulmonary artery enlargement suggesting pulmonary hypertension. MEDIASTINUM/TONI: No pathologically enlarged adenopathy. UPPER ABDOMEN: Bilateral renal cysts. BONES: Degenerative change. CT/Chest without Contrast IMPRESSION: 1.3 cm spiculated right middle lobe nodule, previously 1.2 cm. Consider correlation with PET-CT or tissue diagnosis to assess for slow-growing neoplasm. Presence of pulmonary emphysema on CT is an independent risk factor for lung cancer. Consider LDCT lung cancer screening in the future. Electronically Signed: Deidra Shelby MD at 9:35 EDT ,
== END | disposition home or self-care (01) ==
LOC: CT 08:30
PROVIDERS: PCP Family Medicine; Referring Provider Family Medicine; Visit Provider Family Medicine
DX: J84.10 Pulmonary fibrosis, unspecified (principal)
CPT/HCPCS: 71250

== ENCOUNTER → 2024-03-25 | Outpatient (CLI) | payer MEDICARE, BC, SELFPAY ==
[2024-03-25 13:48] LABS: AST(SGOT) 20 U/L (15-37); Alanine Aminotransfer ALT/SGPT 26 U/L (13-56); Anion Gap 5 (5-15); BUN 28 mg/dL (7-18); BUN/Creat Ratio 22.8 RATIO (10-20); Calcium,Total 9.5 mg/dL (8.5-10.1); Chloride 109 mmol/L (98-107); Cholesterol 196 mg/dL (200); Creatinine, Serum 1.23 mg/dL (0.55-1.02); EST Glomerular Filtration Rate 44 mL/min (>60); Est Glom Filt Rate - Afr Amer 54 mL/min (>60); Glucose 99 mg/dL (74-106); High Density Lipoprotein 87 mg/dL; Potassium 4.8 mmol/L (3.5-5.1); Sodium Level 139 mmol/L (136-145); Triglycerides 105 mg/dL; Very Low Density Lipoprotein 21 mg/dL (5-40)
== END | disposition home or self-care (01) ==
PROVIDERS: PCP Family Medicine; Visit Provider Family Medicine
DX: I10 Essential (primary) hypertension (principal); E78.00 Pure hypercholesterolemia, unspecified
CPT/HCPCS: 36415; 80048; 80061; 84443; 84450; 84460